=== PATIENT | male | born 1955 | race Caucasian/White ===

== ENCOUNTER 2021-09-10 22:56 | Emergency (ER) | payer BC ==
[~2021-09-10] VITALS: Ht 180.3 cm; Wt 85.7 kg
[~2021-09-10 22:56] MED LIST: AZITHROMYCIN 2250 MG PO; LISINOPRIL40 MG; TRICOR145 MG
[2021-09-10 23:06] VITALS: BP 154/86
[2021-09-10] MEDS ORDERED: METFORMIN HCL500 M3 PO (23:08)
[2021-09-10] MEDS ORDERED: LIPITOR10 MG PO (23:08)
== END 2021-09-11 00:49 | disposition left against medical advice (07) ==
LOC: M.ERS 22:56
DX: R50.9 Fever, unspecified (principal); R05.9 Cough, unspecified; R06.02 Shortness of breath; I10 Essential (primary) hypertension; E78.00 Pure hypercholesterolemia, unspecified; Z53.21 Procedure and treatment not carried out due to patient leaving prior to being seen by health care provider